=== PATIENT | female | born 1955 | race Caucasian/White ===

== ENCOUNTER → 2016-03-19 | Outpatient (CLI) | payer OTHER ==
--- NOTE | 2016-03-19 09:13 | CPEKG ---
Heart Rate: 75 RR Interval: 800 P-R Interval: 128 QRSD Interval: 78 QT Interval: 384 QTC Interval: 429 P [place]: 67 QRS [place]: 92 T Wave [place]: 81 EKG Severity - NORMAL ECG - EKG Impression: SINUS RHYTHM Electronically Signed By: Melvin Pyle 19-Mar-2016 13:14:15
== END ==
LOC: FCP 09:03
PROVIDERS: ATTEND Family Medicine
DX: Z13.6 Encounter for screening for cardiovascular disorders (principal)